=== PATIENT | female | born 1945 | race Caucasian/White ===

== ENCOUNTER → 2018-12-22 | Outpatient (CLI) | payer OTHER ==
[~2018-12-22] MED LIST: CARISOPRODOL 3350 MG PO; HYDROCHLOROTHIA50 MG PO; K-DUR10 MEQ PO; NADOLOL 40 MG T40 M1 PO; NAPROSYN500 MG PO; NORCO 5-325 TA1 EACH PO; VALTREX1000 MG PO; ZOFRAN4 MG PO
== END ==
LOC: RAD 13:06
DX: R07.81 Pleurodynia (principal)